=== PATIENT | female | born 1965 | race Two or more races ===

== ENCOUNTER → 2018-09-07 | Outpatient (CLI) | payer OTHER ==
--- NOTE | 2018-09-09 10:26 | MM ---
Reason for exam: screening (asymptomatic). Last mammogram was performed 4 years and 1 month ago. History: Patient is postmenopausal, has history of ovarian cancer at age 50, and had first child at age 31. Physical Findings: A clinical breast exam by your physician is recommended on an annual basis and results should be correlated with mammographic findings. MG Screening Mammo w CAD Bilateral CC and MLO view(s) were taken. Prior study comparison: August 19, 2014, bilateral MG screening mammo w CAD. July 02, 2012, bilateral digital screening mammo w/CAD. The breast tissue is heterogeneously dense. This may lower the sensitivity of mammography. Benign appearing bilateral calcifications. No suspicious abnormality. No significant changes when compared with prior studies. ASSESSMENT: Benign, BI-RAD 2 RECOMMENDATION: Routine screening mammogram of both breasts in 1 year.
== END | disposition home or self-care (01) ==
LOC: RADMAMWWP 09:04
PROVIDERS: ATTEND Family Medicine
DX: Z12.31 Encounter for screening mammogram for malignant neoplasm of breast (principal)
CPT/HCPCS: 77067

== ENCOUNTER → 2020-06-23 | Outpatient (CLI) | payer OTHER ==
--- NOTE | 2020-06-27 09:08 | MM ---
Reason for exam: screening (asymptomatic). Last mammogram was performed 1 year and 9 months ago. History: Patient is postmenopausal, has history of ovarian cancer at age 50, and had first child at age 31. Physical Findings: A clinical breast exam by your physician is recommended on an annual basis and results should be correlated with mammographic findings. MG Screening Mammo w CAD Bilateral CC and MLO view(s) were taken. Prior study comparison: September 07, 2018, bilateral MG screening mammo w CAD. August 19, 2014, bilateral MG screening mammo w CAD. The breast tissue is heterogeneously dense. This may lower the sensitivity of mammography. No significant changes when compared with prior studies. ASSESSMENT: Benign, BI-RAD 2 RECOMMENDATION: Routine screening mammogram of both breasts in 1 year.
== END | disposition home or self-care (01) ==
LOC: RADMAMWWP 12:19
PROVIDERS: ATTEND Family Medicine
DX: Z12.31 Encounter for screening mammogram for malignant neoplasm of breast (principal)
CPT/HCPCS: 77067

== ENCOUNTER 2021-08-30 14:07 | Emergency (ER) | payer OTHER ==
[2021-08-30 14:19] VITALS: BP 186/106; RESP 16; TEMP 97.8
[2021-08-30 15:04] VITALS: PULSE 113
[2021-08-30] MEDS ORDERED: CYCLOBENZAPRINE 10 MG TAB PO STA (15:33)
--- NOTE | 2021-08-30 16:09 | XR ---
EXAMINATION TYPE: XR cervical spine 5 views comp, XR wrist complete 4 views RT, XR shoulder complete 3 views RT, XR humerus 2 views RT DATE OF EXAM: 08/30/2021 COMPARISON: None HISTORY: 55-year-old female fall, trauma, pain FINDINGS: Cervical spine: The predental space widening or prevertebral soft tissue swelling. Mild to moderate degenerative disc disease mid to lower cervical spine with some reversal of the normal cervical lordosis. Trace grade 1 retrolisthesis C6-C7. Otherwise, alignment appears maintained. Multilevel facet and uncovertebral j oint arthropathy. On the left, changes result in severe bony neural foraminal narrowing at C6-C7 and moderate at C5-C6. Mild C3-C4. On the right, mild bony neuroforaminal narrowing C6/C7. The odontoid view shows degenerative joint space narrowing along the C1-C2 lateral mass articulation on the left. Right shoulder and humerus: Minimal degenerative spurring at the glenohumeral joint. AC joint appears intact. No acute fracture, subluxation, or dislocation seen. No humeral shaft fracture. Limited assessment for elbow joint effus ion due to obliquity on the lateral view of the humerus. Mild bony spurring at the lateral epicondyle . Wrist: The radiocarpal and distal radioulnar joint as well as the midcarpal compartment appear intact. There is mild soft tissue swelling about the wrist. Mild degenerative change first MCP and triscaphe joint s. IMPRESSION: 1. Cervical spine: Moderate multilevel spondylotic change. Degenerative trace grade 1 retrolisthesis at C6-C7. Reversal of the normal cervical lordosis could be positional or due to muscle spasm. There may be severe left neuroforaminal stenosis at C6-C7. No prevertebral soft tissue swelling. 2. Right shoulder and humerus: No acute osseous abnormality seen. 3. Wrist: No acute osseous abnormality seen. There may be some mild soft tissue swelling. Mild osteoa rthritic change at the base of the thumb.
--- NOTE | 2021-08-30 16:12 | XR ---
EXAMINATION TYPE: XR foot complete bilateral, 3 views DATE OF EXAM: 08/30/2021 Comparison: None Clinical History: 55-year-old female with pain after trauma, fall Findings: Mild hallux valgus on both sides. Mild degenerative change first MTP joint. Bilateral bipartite tibia l sesamoid. Mild bunion formation on both sides. Bilateral moderate sized plantar heel spurs. No acut e fracture, subluxation, dislocation seen. Impression: No acute osseous abnormality seen on either side. Moderate sized plantar heel spurs on both sides. Mi ld degenerative change first MTP joint and mild hallux valgus with bunion formation bilaterally.
--- NOTE | 2021-08-30 17:15 | ED ---
Fall HPI - General Chief Complaint: Fall Stated Complaint: IHS-Foot injury Time Seen by Provider: 08/30/21 15:11 Source: patient Mode of arrival: ambulatory - History of Present Illness Initial Comments: 55-year-old female presents to the emergency department for IHSS evaluation. 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 She has been complaining of bilateral foot pain. Does have ecchymosis over the right foot. She also has right wrist, humeral and shoulder pain as well as right-sided neck pain. She has been taking Motrin at home with some improvement in her symptoms. Due to her persistent pain her work did recommend that she get evaluated. No numbness, tingling or weakness. She is right-hand dominant. No other alleviating, precipitating modifying factors - Related Data Previous Rx's Medication Instructions Recorded Hydrocodone/Acetaminophen [[place] 1 each PO Q6HR PRN #1 tab 07/17/14 5-325] Lisinopril [Prinivil] 10 mg PO DAILY #30 tab 07/17/14 predniSONE 50 mg PO DAILY #5 tab 07/17/14 traMADol HCl [Ultram] 50 mg PO Q4H PRN #20 tab 07/17/14 Cyclobenzaprine [Flexeril] 10 mg PO TID PRN #15 tab 08/30/21 Ibuprofen [Motrin] 600 mg PO Q8HR PRN #30 tab 08/30/21 Allergies Allergy/AdvReac Type Severity Reaction Status Date / Time No Known Allergies Allergy Verified 08/30/21 14:16 Review of Systems ROS Statement: Those systems with pertinent positive or pertinent negative responses have been documented in the HPI. ROS Other: All systems not noted in ROS Statement are negative. Past Medical History Past Medical History: No Reported History History of Any Multi-Drug Resistant Organisms: None Reported Past Surgical History: No Surgical Hx Reported Past Psychological History: No Psychological Hx Reported Smoking Status: Current every day smoker Past Alcohol Use History: None Reported Past Drug Use History: None Reported General Exam Limitations: no limitations Course Vital Signs 08/30/21 14:16 Temperature 97.8 F Pulse Rate 113 H Respiratory 16 Rate Blood Pressure 186/106 O2 Sat by Pulse 98 Oximetry Medical Decision Making - Medical Decision Making Upon arrival patient was placed in room 31. A thorough history and physical exam was performed. Cervical spine x-ray, humeral, shoulder, wrist and bilateral foot x-rays are performed and images are reviewed by myself. There read by the radiologist as negative for any acute fractures. Cervical spine does demonstrate multilevel spondylitic changes. Left neural foraminal stenosis at C6 to C7. Patient is placed in a Bhupinder shoe on the right due to her reported pain with ambulation. She is given a prescription for Flexeril and Motrin 600 mg. Patient is instructed to take the medications as directed and follow-up with orthopedic clinic for further evaluation of her symptoms. She continues to have pain she may need repeat images performed for which the patient understood. If she has any new or worsening symptoms her request that she return to the emergency department. 5 panel drug screen is ordered on the patient as this is requested by her employer. Patient's discharged home hemodynamically in stable condition Disposition Clinical Impression: Fall, Bilateral foot pain, Right shoulder pain Disposition: HOME SELF-CARE Condition: Stable Instructions (If sedation given, give patient instructions): Foot Sprain (ED), Shoulder Pain (ED) Additional Instructions: Please take the Motrin and flexeril as directed. [facility] if he continued to have pain. Return to the emergency room for any new or worsening symptoms Prescriptions: Cyclobenzaprine [Flexeril] 10 mg PO TID PRN #15 tab PRN Reason: Muscle Spasm Ibuprofen [Motrin] 600 mg PO Q8HR PRN #30 tab PRN Reason: Pain Is patient prescribed a controlled substance at d/c from ED?: No Referrals: Simon Fowler MD [Primary Care Provider] - 1-2 days Karoline Walker DO [Doctor of Osteopathic Medicine] - 1-2 days Time of Disposition: 17:15
== END 2021-08-30 17:34 | disposition home or self-care (01) ==
LOC: EC 14:07
DX: M47.812 Spondylosis without myelopathy or radiculopathy, cervical region (principal); M48.02 Spinal stenosis, cervical region; M25.511 Pain in right shoulder; M79.672 Pain in left foot; M79.671 Pain in right foot; F17.200 Nicotine dependence, unspecified, uncomplicated
CPT/HCPCS: 72050; 99283

== ENCOUNTER → 2021-09-10 | Outpatient (CLI) | payer OTHER ==
--- NOTE | 2021-09-10 10:29 | XR ---
EXAMINATION TYPE: XR humerus RT DATE OF EXAM: 09/10/2021 COMPARISON: NONE HISTORY: Pain TECHNIQUE: 2 views submitted. FINDINGS: The osseous structures are intact and there is mild hypertrophic change of the AC joint. Spurring libra ng the epicondyles noted. Spurring along the radial head and proximal ulna seen. Incidental note made of a coarsened interstitium. IMPRESSION: 1. No acute fracture or dislocation. 2. Coarsened interstitium within the right lung could be chronic correlate clinically.
== END | disposition home or self-care (01) ==
LOC: RADXRMAIN 09:25
PROVIDERS: ATTEND Emergency Medicine
DX: M79.621 Pain in right upper arm (principal)

== ENCOUNTER 2021-09-19 22:44 | Inpatient (IN) | payer OTHER ==
[2021-09-19 23:29] LABS: Basophils # (A) 0.1 k/uL (0-0.2); Basophils % (A) 1 %; Eosinophils # (A) 0.5 k/uL (0-0.7); Eosinophils % (A) 5 %; HCT 39.3 % (34.0-46.0); Lymphocytes # (A) 2.3 k/uL (1.0-4.8); Lymphocytes % (A) 22 %; MCH 29.9 pg (25.0-35.0); MCHC 33.1 g/dL (31.0-37.0); MCV 90.3 fL (80.0-100.0); Mean Platelet Volume 8.5; Monocytes # (A) 0.5 k/uL (0-1.0); Monocytes % (A) 4 %; Neutrophils # (A) 6.7 k/uL (1.3-7.7); Neutrophils % (A) 65 %; Platelet Count 286 k/uL (150-450); RBC 4.35 m/uL (3.80-5.40); RDW 14.4 % (11.5-15.5); WBC 10.3 k/uL (3.8-10.6)
--- NOTE | 2021-09-19 23:41 | XR ---
EXAMINATION TYPE: XR chest 2V DATE OF EXAM: 09/19/2021 COMPARISON: NONE HISTORY: Short of breath TECHNIQUE: 2 views FINDINGS: Heart is enlarged. There is some pulmonary vascular congestion. No hilar mass. Mediastinum is normal. Bony thorax is intact. IMPRESSION: There is evidence for some mild congestive heart failure.
[2021-09-19] MEDS ORDERED: ENALAPRILAT 1.25 MG/ML 1 ML VIAL IVP STA (23:44)
[2021-09-19 23:48] LABS: Albumin 4.1 g/dL (3.5-5.0); Calcium 9.2 mg/dL (8.4-10.2); Total Bilirubin 0.7 mg/dL (0.2-1.3); Total Protein 7.2 g/dL (6.3-8.2)
--- NOTE | 2021-09-19 23:55 | ED ---
SOB HPI - General Chief Complaint: Shortness of Breath Stated Complaint: JANETTE Time Seen by Provider: 09/19/21 23:24 Source: patient Mode of arrival: ambulatory - History of Present Illness Initial Comments: This patient is a 55-year-old woman who presents to be evaluated for shortness of breath and cough. Patient states that the symptoms had started coming on "a few days ago" which is also when she ran out of her blood pressure medication. The patient states she has also had a cough with some clear sputum. She has not noticed chest pain. There is no fever or chill. No change in urination or bowel movements. No leg pain or swelling MD Complaint: shortness of breath, cough -: days(s) Severity scale (1-10): 0 Consistency: constant Improves With: nothing Worsens With: nothing Context: medication noncompliance Associated Symptoms: cough - Related Data Previous Rx's Medication Instructions Recorded Hydrocodone/Acetaminophen [[place] 1 each PO Q6HR PRN #1 tab 07/17/14 5-325] Lisinopril [Prinivil] 10 mg PO DAILY #30 tab 07/17/14 predniSONE 50 mg PO DAILY #5 tab 07/17/14 traMADol HCl [Ultram] 50 mg PO Q4H PRN #20 tab 07/17/14 Cyclobenzaprine [Flexeril] 10 mg PO TID PRN #15 tab 08/30/21 Ibuprofen [Motrin] 600 mg PO Q8HR PRN #30 tab 08/30/21 Allergies Allergy/AdvReac Type Severity Reaction Status Date / Time No Known Allergies Allergy Verified 09/19/21 22:48 Review of Systems ROS Statement: Those systems with pertinent positive or pertinent negative responses have been documented in the HPI. ROS Other: All systems not noted in ROS Statement are negative. Constitutional: Denies: fever, chills Respiratory: Reports: as per HPI, cough, dyspnea. Denies: wheezes, hemoptysis Cardiovascular: Reports: orthopnea. Denies: chest pain, palpitations, edema, syncope Gastrointestinal: Denies: abdominal pain, vomiting, diarrhea Genitourinary: Denies: dysuria, hematuria Musculoskeletal: Denies: back pain Skin: Denies: rash Neurological: Denies: headache Past Medical History Past Medical History: Hypertension History of Any Multi-Drug Resistant Organisms: None Reported Past Surgical History: No Surgical Hx Reported Past Psychological History: No Psychological Hx Reported Smoking Status: Current every day smoker Past Alcohol Use History: None Reported Past Drug Use History: None Reported General Exam General appearance: alert, in no apparent distress Head exam: Present: atraumatic, normocephalic Eye exam: Present: normal appearance. Absent: scleral icterus, conjunctival injection Neck exam: Present: normal inspection Respiratory exam: Present: rales. Absent: respiratory distress, wheezes, rhonchi, stridor, accessory muscle use Cardiovascular Exam: Present: regular rate, normal rhythm, systolic murmur (There is a grade 3/6 systolic ejection murmur), gallop. Absent: diastolic murmur, rubs GI/Abdominal exam: Present: soft. Absent: distended, tenderness, guarding, rebound, rigid Extremities exam: Present: normal inspection, normal capillary refill. Absent: pedal edema, calf tenderness Back exam: Present: normal inspection. Absent: CVA tenderness (R), CVA tenderness (L) Neurological exam: Present: alert Skin exam: Present: warm, dry, intact, normal color. Absent: rash Course Vital Signs 09/19/21 09/20/21 09/20/21 22:45 00:07 00:15 Temperature 98.1 F Pulse Rate 53 L 92 92 Respiratory 18 18 16 Rate Blood Pressure 195/116 182/115 160/100 O2 Sat by Pulse 94 L 99 98 Oximetry 09/20/21 09/20/21 09/20/21 00:20 00:32 01:10 Temperature Pulse Rate 90 84 80 Respiratory 16 16 14 Rate Blood Pressure 154/99 146/96 141/83 O2 Sat by Pulse 96 97 98 Oximetry Medical Decision Making - Lab Data Result diagrams: 09/19/21 23:16 09/19/21 23:16 Lab Results 09/19/21 09/19/21 09/19/21 Range/Units 23:16 23:16 23:16 WBC 10.3 (3.8-10.6) k/uL RBC 4.35 (3.80-5.40) m/uL Hgb 13.0 (11.4-16.0) gm/dL Hct 39.3 (34.0-46.0) % MCV 90.3 (80.0-100.0) fL MCH 29.9 (25.0-35.0) pg MCHC 33.1 (31.0-37.0) g/dL RDW 14.4 (11.5-15.5) % Plt Count 286 (150-450) k/uL MPV 8.5 Neutrophils % 65 % Lymphocytes % 22 % Monocytes % 4 % Eosinophils % 5 % Basophils % 1 % Neutrophils # 6.7 (1.3-7.7) k/uL Lymphocytes # 2.3 (1.0-4.8) k/uL Monocytes # 0.5 (0-1.0) k/uL Eosinophils # 0.5 (0-0.7) k/uL Basophils # 0.1 (0-0.2) k/uL PT 10.3 (9.0-12.0) sec INR 0.9 (<1.2) APTT 22.6 (22.0-30.0) sec Sodium 137 (137-145) mmol/L Potassium 4.0 (3.5-5.1) mmol/L Chloride 109 H (98-107) mmol/L Carbon Dioxide 20 L (22-30) mmol/L Anion Gap 8 mmol/L BUN 21 H (7-17) mg/dL Creatinine 1.28 H (0.52-1.04) mg/dL Est GFR (CKD-EPI)AfAm 54 (>60 ml/min/1.73 sqM) Est GFR (CKD-EPI)NonAf 47 (>60 ml/min/1.73 sqM) Glucose 131 H (74-99) mg/dL Plasma Lactic Acid Alexei (0.7-2.0) mmol/L Calcium 9.2 (8.4-10.2) mg/dL Total Bilirubin 0.7 (0.2-1.3) mg/dL AST 36 (14-36) U/L ALT 31 (4-34) U/L Alkaline Phosphatase 130 H (38-126) U/L Troponin I (0.000-0.034) ng/mL NT-Pro-B Natriuret Pep pg/mL Total Protein 7.2 (6.3-8.2) g/dL Albumin 4.1 (3.5-5.0) g/dL 09/19/21 09/19/21 09/20/21 Range/Units 23:16 23:38 00:00 WBC (3.8-10.6) k/uL RBC (3.80-5.40) m/uL Hgb (11.4-16.0) gm/dL Hct (34.0-46.0) % MCV (80.0-100.0) fL MCH (25.0-35.0) pg MCHC (31.0-37.0) g/dL RDW (11.5-15.5) % Plt Count (150-450) k/uL MPV Neutrophils % % Lymphocytes % % Monocytes % % Eosinophils % % Basophils % % Neutrophils # (1.3-7.7) k/uL Lymphocytes # (1.0-4.8) k/uL Monocytes # (0-1.0) k/uL Eosinophils # (0-0.7) k/uL Basophils # (0-0.2) k/uL PT (9.0-12.0) sec INR (<1.2) APTT (22.0-30.0) sec Sodium (137-145) mmol/L Potassium (3.5-5.1) mmol/L Chloride (98-107) mmol/L Carbon Dioxide (22-30) mmol/L Anion Gap mmol/L BUN (7-17) mg/dL Creatinine (0.52-1.04) mg/dL Est GFR (CKD-EPI)AfAm (>60 ml/min/1.73 sqM) Est GFR (CKD-EPI)NonAf (>60 ml/min/1.73 sqM) Glucose (74-99) mg/dL Plasma Lactic Acid Alexie 0.9 (0.7-2.0) mmol/L Calcium (8.4-10.2) mg/dL Total Bilirubin (0.2-1.3) mg/dL AST (14-36) U/L ALT (4-34) U/L Alkaline Phosphatase (38-126) U/L Troponin I 0.097 H* (0.000-0.034) ng/mL NT-Pro-B Natriuret Pep 4520 pg/mL Total Protein (6.3-8.2) g/dL Albumin (3.5-5.0) g/dL - EKG Data -: EKG Interpreted by Tx EKG shows normal: sinus rhythm, axis (Normal), intervals (Normal), QRS complexes (LVH) Rate: tachycardia (Rate 106 bpm) Interpretation: LVH Disposition Clinical Impression: Congestive heart failure, Hypertension, Elevated troponin I measurement Disposition: ADMITTED IP TO THIS HOSP Condition: Fair Is patient prescribed a controlled substance at d/c from ED?: No Referrals: Simon Fowler MD [Primary Care Provider] - 1-2 days
[2021-09-20] MEDS: NITROGLYCERIN SL TABS 0.4 MG TAB SUBLINGUAL STA ×3 (00:09→00:21)
[2021-09-20 00:10] LABS: INR 0.9 (<1.2); Partial Thromboplastin Time 22.6 sec (22.0-30.0); Prothrombin Time 10.3 sec (9.0-12.0)
[2021-09-20] MEDS: FUROSEMIDE 10 MG/ML 4 ML VIAL IV SCH ×2 (02:14→13:52)
[2021-09-20] MEDS ORDERED: ACETAMINOPHEN TAB 325 MG TAB PO PRN (05:20)
[2021-09-20] MEDS ORDERED: HEPARIN SODIUM 1,000 UN/ML (10ML VL) IV ONE (06:23)
[2021-09-20] MEDS ORDERED: HEPARIN SODIUM 1,000 UN/ML (10ML VL) IV PRN (06:23)
[2021-09-20] MEDS ORDERED: CYCLOBENZAPRINE 10 MG TAB PO PRN (06:23)
[2021-09-20] MEDS ORDERED: HYDROcodone/APAP 5-325MG 1 EACH TAB PO PRN (06:23)
--- NOTE | 2021-09-20 06:31 | P.HPIM ---
History of Present Illness H&P Date: 09/20/21 Chief Complaint: chest pain/shortness of breath 55-year-old female with diabetes mellitus hypertension Patient comes in for an episode of chest pain described as pressure across her chest 5 out of 10 in severity associated with shortness of breath and palpitations denies any profuse sweating nausea or vomiting denies any abdominal pain diarrhea fevers or chills. She started feeling dizzy and weak got concerned and decided to come to the hospital for evaluation pain didn't last long can started improving by the time she got to the hospital. She reports that for the last 3 days she's been having some shortness of breath with activity and coughing she was feeling out of shape she quit smoking for the past 3-4 days as she was not able to tolerate that due to trouble breathing. Again she denies any other respiratory symptoms. Denies any leg edema. Denies any orthopnea or paroxysmal maternal dyspnea. Denies any history of cardiac disease or congestive heart failure. Denies any history of cardiac workup.denies any GI bleeding, denies any recent travel her hospitalization, denies any diagnoses of active cancer upon arrival to the ED she mentioned that she was not taking her blood pressure medications for the past few days as she ran out. Chest x-ray showed mild congestion she was given some IV Lasix, EKG showed sinus tachycardia, troponin was slightly elevated patient admits to tobacco smoking, denies illicit drugs, admits to occasional alcohol Review of Systems Pertinent positives as noted in HPI. All other systems were reviewed and are negative Past Medical History Past Medical History: Diabetes Mellitus, Hypertension History of Any Multi-Drug Resistant Organisms: None Reported Past Surgical History: No Surgical Hx Reported Past Psychological History: No Psychological Hx Reported Smoking Status: Current some day smoker Past Alcohol Use History: None Reported Past Drug Use History: None Reported - Past Family History Father Family Medical History: CVA/TIA Medications and Allergies Home Medications Medication Instructions Recorded Confirmed Type Hydrocodone/Acetaminophen [[place] 1 each PO Q6HR PRN #1 tab 07/17/14 Rx 5-325] Lisinopril [Prinivil] 10 mg PO DAILY #30 tab 07/17/14 Rx predniSONE 50 mg PO DAILY #5 tab 07/17/14 Rx traMADol HCl [Ultram] 50 mg PO Q4H PRN #20 tab 07/17/14 Rx Cyclobenzaprine [Flexeril] 10 mg PO TID PRN #15 tab 08/30/21 Rx Ibuprofen [Motrin] 600 mg PO Q8HR PRN #30 tab 08/30/21 Rx Allergies Allergy/AdvReac Type Severity Reaction Status Date / Time No Known Allergies Allergy Verified 09/19/21 22:48 Physical Exam Vitals: Vital Signs Temp Pulse Pulse Resp BP BP Pulse Ox 09/20/21 04:00 97.7 F 103 H 18 155/102 98 09/20/21 03:46 98 F 79 15 148/99 99 09/20/21 01:10 80 14 141/83 98 09/20/21 00:32 84 16 146/96 97 09/20/21 00:20 90 16 154/99 96 09/20/21 00:15 92 16 160/100 98 09/20/21 00:07 92 18 182/115 99 09/19/21 22:45 98.1 F 53 L 18 195/116 94 L Intake and Output 09/19/21 09/19/21 09/20/21 14:59 22:59 06:59 Intake Total 720 Output Total 750 Balance -30 Intake: Oral 720 Output: Urine 750 Other: Weight 58.967 kg 58.967 kg Constitutional: No acute distress, conversant, pleasant Eyes: Anicteric sclerae, moist conjunctiva, Pupils equal round reactive to light ENMT: NC/AT Oropharynx clear, no erythema, or exudates Neck: Supple, FROM, no masses, or JVD No carotid bruits No thyromegaly Lungs: scattered rales, otherwise good breath sounds throughout Clear to percussion Normal respiratory effort, no accessory muscle use Cardiovascular: Heart regular in rate and rhythm, systolic murmurs, no gallops, or rubs No peripheral edema Abdominal: Soft Nontender, no guarding, rebound or rigidity Abdomen moving with respiration Normoactive bowel sounds No hepatomegaly, No splenomegaly No palpable mass No abdominal wall hernia noted Skin: Normal temperature, tone, texture, turgor No induration No subcutaneous nodules No rash, lesions No ulcers Extremities: No digital cyanosis No clubbing Pedal pulses intact and symmetrical Radial pulses intact and symmetrical No calf tenderness Psychiatric: Alert and oriented to person, place and time Appropriate affect fair judgement Neuro Muscles Strength 5/5 in all 4 extremities Sensation to light touch grossly present throughout Cranial nerves II-XII grossly intact No focal sensory deficits Lymphatics: no palpable cervical or supraclavicular , or inguinal lymph nodes Results CBC & Chem 7: 09/19/21 23:16 09/19/21 23:16 Labs: Abnormal Lab Results - Last 24 Hours (Table) 09/19/21 09/19/21 09/20/21 Range/Units 23:16 23:16 04:08 Chloride 109 H (98-107) mmol/L Carbon Dioxide 20 L (22-30) mmol/L BUN 21 H (7-17) mg/dL Creatinine 1.28 H (0.52-1.04) mg/dL Glucose 131 H (74-99) mg/dL Alkaline Phosphatase 130 H (38-126) U/L Troponin I 0.097 H* 0.100 H* (0.000-0.034) ng/mL Thrombosis Risk Factor Assmnt - Choose All That Apply Any of the Below Risk Factors Present?: Yes Each Factor Represents 1 point: Age 41-60 years, Obesity (BMI >25) Other Risk Factors: No Other congenital or acquired thrombophilia - If yes, enter type in comment: No Thrombosis Risk Factor Assessment Total Risk Factor Score: 2 Thrombosis Risk Factor Assessment Level: Low Risk Assessment and Plan Assessment: Nstemi mild pulmonary edema Hypertension, noncompliant with meds Plan EKG no acute ST changes Trend troponins, trending up Aspirin and statin pain control with opiates IV Lasix Cardiology consult Heparin dripfor ACS protocol cardiac monitoring resume blood pressure medications lisinopril check echocardiogram, patient has systolic murmur, and to evaluate EF Mild elevation of creatinine unknown baseline Close monitoring of renal function and urine output Diabetes mellitus Insulin sliding scale Check A1c Full code DVT prophylaxis heparin drip for ACS protocol Anticipated length of stay more than 2 midnights
[2021-09-20] MEDS: HEPARIN SOD,PORK IN 0.45% NACL 25,000 UNIT in 0.45% NACL 1 250ML.BAG IV SCH (06:56)
[2021-09-20] MEDS: INSULIN ASPART (NovoLOG) 100 UNIT/ML VIAL SQ SCH ×4 (07:06→20:02)
[2021-09-20 07:08] LABS: Glucose,Whole Blood 103 mg/dL (75-99)
[2021-09-20 07:54] LABS: Partial Thromboplastin Time 82.2 sec (22.0-30.0); Prothrombin Time 11.2 sec (9.0-12.0)
[2021-09-20] MEDS: NITROGLYCERIN OINT 1 INCH/GM PACKET TOPICAL SCH ×4 (08:50→22:47)
[2021-09-20] MEDS ORDERED: lisinopriL 10 MG TAB PO SCH (09:00)
[2021-09-20] MEDS ORDERED: ATORVASTATIN 20 MG TAB PO SCH (09:00)
[2021-09-20] MEDS ORDERED: METOPROLOL TARTRATE 25 MG TAB PO SCH (09:30)
[2021-09-20 09:47] LABS: Chol/HDL Ratio 4.35 Ratio; LDL Cholesterol,Calculated 161.2 mg/dL (0.0-131.0)
[2021-09-20 10:00] LABS: Calcium 9.4 mg/dL (8.4-10.2); Potassium 3.9 mmol/L (3.5-5.1)
--- NOTE | 2021-09-20 10:15 | CA ---
Transthoracic Echo Report Name: Rita Betancourt Age: 55 Gender: F : 1965 Exam Date: 09/20/2021 08:07 Exam Location: [place] [facility] Ht (in): 58 Wt (lb): 127 Ordering Physician: Robby Montes MD Attending/Referring Phys: Internal Corrosion Specialist Roro Paredes RDCS Procedure CPT: Indications: Heart failure Cardiac Hx: Technical Quality: Good Contrast 1: Total Dose (mL): Contrast 2: Total Dose (mL): MEASUREMENTS (Male / Female) Normal Values 2D ECHO LV Diastolic Diameter PLAX 5.9 cm 4.2 - 5.9 / 3.9 - 5.3 cm LV Systolic Diameter PLAX 5.0 cm IVS Diastolic Thickness 0.9 cm 0.6 - 1.0 / 0.6 - 0.9 cm LVPW Diastolic Thickness 0.9 cm 0.6 - 1.0 / 0.6 - 0.9 cm LV Relative Wall Thickness 0.3 RV Internal Dim ED PLAX 2.8 cm LA Systolic Diameter LX 3.7 cm 3.0 - 4.0 / 2.7 - 3.8 cm LA Volume 55.0 cm 18 - 58 / 22 - 52 cm M-MODE Aortic Root Diameter MM 3.2 cm MV E Point Septal Separation 1.9 cm AV Cusp Separation MM 1.8 cm DOPPLER AV Peak Velocity 153.7 cm/s AV Peak Gradient 9.4 mmHg AI Peak Velocity 530.5 cm/s AI Peak Gradient 112.6 mmHg AI Pressure Half Time 348.0 ms MV Area PHT 4.3 cm Mitral E Point Velocity 144.6 cm/s Mitral A Point Velocity 130.5 cm/s Mitral E to A Ratio 1.1 MV Deceleration Time 176.1 ms MV E' Velocity 3.8 cm/s Mitral E to MV E' Ratio 37.7 TR Peak Velocity 307.0 cm/s TR Peak Gradient 37.7 mmHg Right Ventricular Systolic Press 40.6 mmHg FINDINGS Left Ventricle Moderately increased left ventricular diastolic diameter. Left ventricular ejection fraction is estimated at 40-45 %. Right Ventricle The right ventricle is normal in size and function. Mild pulmonary hypertension. Right Atrium The right atrium is normal in size. Left Atrium Mildly increased left atrial volume. Mildly increased left atrial area. Mitral Valve Structurally normal mitral valve without significant stenosis or prolapse. Mitral valve thickened. Mitral annular calcification. Severe mitral regurgitation. Aortic Valve Focal thickening of the aortic valve cusps. Mild aortic regurgitation. Tricuspid Valve Structurally normal tricuspid valve without significant stenosis. Pulmonic Valve Structurally normal pulmonic valve without significant stenosis. Trace pulmonic regurgitation. Pericardium Normal pericardium without effusion. Aorta Normal aortic root dimension. CONCLUSIONS #1. Moderately dilated left ventricle with generalized hypokinesia and ejection fraction of 40-45%. Consistent with nonischemic cardio myopathy. #2. Left atrial enlargement. #3. Thickening of the mitral valve with calcification with eccentric severe mitral regurgitation. #3. Mild aortic regurgitation. #4. No pericardial effusion Previewed by: Dr. Angel King MD (Electronically Signed) Final Date: 20 September 2021 10:14
[2021-09-20] MEDS: carvediloL 6.25 MG TAB PO SCH ×2 (10:18→17:48)
--- NOTE | 2021-09-20 11:20 | CT ---
EXAMINATION TYPE: CT chest angio for PE DATE OF EXAM: 09/20/2021 COMPARISON: No previous CT scan is available for comparison HISTORY: Chest pain CT DLP: 273.1 mGy.cm. Automated Exposure Control for Dose Reduction was Utilized. TECHNIQUE AND CONTRAST: CTA scan of the thorax is performed without and with IV Contrast, patient injected with 80 ml mL of I sovue 370, pulmonary angiogram protocol. MIP Images are created on an independent workstation and r eviewed. FINDINGS: No definite filling defect within the pulmonary trunk, main pulmonary arteries, lobar, segmental and proximal subsegmental branches to suggest pulmonary embolism. Distal subsegmental branches are subopt imally assessed. The pulmonary trunk measures 2.2 cm. Cardiomegaly with left ventricular hypertrophy and dilatation, please correlate with echocardiographi c results. Scattered arterial atherosclerotic calcifications. No pathologically enlarged lymph nodes in the chest with this CT angiographic study. No sizable pericardial effusion. Small right pleural effusion with scattered bilateral pulmonary thin atelectasis and peripheral retic ulations. Pulmonary edema cannot be excluded. Patent trachea and main bronchi. Unremarkable upper abd omen. Degenerative changes of the mid to lower thoracic spine. IMPRESSION: No major or central pulmonary embolism. Cardiomegaly with suspected pulmonary edema as described codie sandra
[2021-09-20] MEDS ORDERED: ALPRAZolam 0.5 MG TAB PO PRN (11:36)
[2021-09-20] MEDS ORDERED: NITROGLYCERIN SL TABS 0.4 MG TAB SUBLINGUAL PRN (11:36)
[2021-09-20] MEDS ORDERED: ALPRAZolam 0.25 MG TAB PO PRN (11:36)
--- NOTE | 2021-09-20 11:36 | P.CRDCN ---
History of Present Illness History of present illness: HISTORY OF PRESENT ILLNESS: This is a 55 year old female with a past medical history significant for hypertension, diabetes, and nicotine dependence. 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 We have been asked to see the patient in consultation for abnormal troponins. Patient examined at the bedside. Patient presented to the hospital with a chief complaint of shortness of breath. Patient reports for about a week she has been feeling SOB. She also reports a lot of coughing. She states it has gotten worse over the past 3 days and yesterday was so bad she decided to come to the ER. She also reports some chest pain over the past few days. She reports some heaviness in her chest this morning that has since resolved. She denied any radiation of the pain. She does report she has been out of her blood pressure medications for the past few days as well. She denies any previous cardiac history and denies every having a stress test or heart cath. She is a current smoker. No drug use. * EKG reveals sinus tachycardia with LVH * Chest xray there is evidence for some mild congestive heart failure * Laboratory data: WBC 10.3. Hemoglobin 13.0. Platelet count 286. D-dimer 1.05. Sodium 141. Potassium 3.9. BUN 20. Creatinine 1.32. Troponin 0.097. 0.100. 0.088. * CTA: negative for PE * Current home cardiac medications include losartan 100 mg at night * Echocardiogram completed revealing ejection fraction 40-45% with generalized hypokinesia, right ventricle normal in size and function, mild pulmonary hypertension, severe mitral regurgitation. REVIEW OF SYSTEMS: At the time of my exam: CONSTITUTIONAL: Denies fever or chills. HEENT: Denies blurred vision, vision changes, or eye pain. Denies hemoptysis CARDIOVASCULAR: Denies chest pain. Denies orthopnea. Denies PND. Denies palpitations RESPIRATORY: + shortness of breath. GASTROINTESTINAL: Denies abdominal pain. Denies nausea or vomiting. HEMATOLOGIC: Denies bleeding disorders. GENITOURINARY: Denies any blood in urine. SKIN: Denies pruitis. Denies rash. PHYSICAL EXAM: VITAL SIGNS: Reviewed. GENERAL: Well-developed in no acute distress. HEENT: Head is normocephalic. Pupils are equal, round. Sclerae anicteric. Mucous membranes of the mouth are moist. Neck supple. No JVD or thyromegaly LUNGS: Respirations even and unlabored. Lungs diminished bilaterally with scattered crackles. HEART: Regular rate and rhythm. S1 and S2 heard. Systolic murmur noted. ABDOMEN: Soft. Nondistended. Nontender. EXTREMITIES: Normal range of motion. No clubbing or cyanosis. Peripheral pulses intact. No lower extremity edema NEUROLOGIC: Awake and alert. Oriented x 3. ASSESSMENT: Shortness of breath New onset heart failure with reduced EF Non-STEMI Elevated D-Dimer, CTA negative for PE Hypertension, uncontrolled Severe MR Diabetes Nicotine dependence PLAN: Continue IV heparin Resume Losartan Add aspirin 81mg, atorvastatin 40 mg daily, carvedilol 6.25 mg twice a day Continue IV Lasix Daily weights Accurate I&O Monitor kidney function Patient to undergo right and left heart cath tomorrow with Dr. Patton Further recommendations pending patient course Nurse practitioner note has been reviewed by physician. Signing provider agrees with the documented findings, assessment, and plan of care. Past Medical History Past Medical History: Diabetes Mellitus, Hypertension History of Any Multi-Drug Resistant Organisms: None Reported Past Surgical History: No Surgical Hx Reported Past Psychological History: No Psychological Hx Reported Smoking Status: Current some day smoker Past Alcohol Use History: None Reported Past Drug Use History: None Reported - Past Family History Father Family Medical History: CVA/TIA Medications and Allergies Home Medications Medication Instructions Recorded Confirmed Type Losartan Potassium 100 mg PO HS 09/20/21 09/20/21 History metFORMIN HCL [Glucophage] 1,000 mg PO HS 09/20/21 09/20/21 History Allergies Allergy/AdvReac Type Severity Reaction Status Date / Time No Known Allergies Allergy Verified 09/20/21 06:59 Physical Exam Vitals: Vital Signs Temp Pulse Pulse Resp BP BP Pulse Ox 09/20/21 08:59 98.1 F 90 18 161/107 97 09/20/21 04:00 97.7 F 103 H 18 155/102 98 09/20/21 03:46 98 F 79 15 148/99 99 09/20/21 01:10 80 14 141/83 98 09/20/21 00:32 84 16 146/96 97 09/20/21 00:20 90 16 154/99 96 09/20/21 00:15 92 16 160/100 98 09/20/21 00:07 92 18 182/115 99 09/19/21 22:45 98.1 F 53 L 18 195/116 94 L Intake and Output 09/19/21 09/20/21 09/20/21 22:59 06:59 14:59 Intake Total 1120 Output Total 750 Balance 370 Intake: Oral 1120 Output: Urine 750 Other: # Voids 1 Weight 58.967 kg 57.7 kg Results 09/19/21 23:16 09/20/21 07:15 Cardiac Enzymes 09/19/21 09/19/21 09/20/21 Range/Units 23:16 23:16 04:08 AST 36 (14-36) U/L Troponin I 0.097 H* 0.100 H* (0.000-0.034) ng/mL 09/20/21 Range/Units 07:15 AST (14-36) U/L Troponin I 0.088 H* (0.000-0.034) ng/mL Coagulation 09/19/21 09/20/21 Range/Units 23:16 07:15 PT 10.3 11.2 (9.0-12.0) sec APTT 22.6 82.2 H (22.0-30.0) sec CBC 09/19/21 Range/Units 23:16 WBC 10.3 (3.8-10.6) k/uL RBC 4.35 (3.80-5.40) m/uL Hgb 13.0 (11.4-16.0) gm/dL Hct 39.3 (34.0-46.0) % Plt Count 286 (150-450) k/uL Comprehensive Metabolic Panel 09/19/21 Range/Units 23:16 Sodium 137 (137-145) mmol/L Potassium 4.0 (3.5-5.1) mmol/L Chloride 109 H (98-107) mmol/L Carbon Dioxide 20 L (22-30) mmol/L BUN 21 H (7-17) mg/dL Creatinine 1.28 H (0.52-1.04) mg/dL Glucose 131 H (74-99) mg/dL Calcium 9.2 (8.4-10.2) mg/dL AST 36 (14-36) U/L ALT 31 (4-34) U/L Alkaline Phosphatase 130 H (38-126) U/L Total Protein 7.2 (6.3-8.2) g/dL Albumin 4.1 (3.5-5.0) g/dL Current Medications Generic Name Dose Route Start Last Admin Trade Name Kira PRN Reason Stop Dose Admin Acetaminophen 650 mg 09/20/21 05:20 09/20/21 07:09 Acetaminophen Tab 325 Mg Tab PO 650 mg Q4HR PRN Administration Fever and/ or Pain Hydrocodone Bitart/Acetaminophen 1 each 09/20/21 06:23 Hydrocodone/Apap 5-325mg 1 Each Tab PO Q6HR PRN Pain Aspirin 81 mg 09/21/21 09:00 Aspirin 81 Mg PO DAILY [facility] Atorvastatin Calcium 20 mg 09/20/21 09:00 09/20/21 08:50 Atorvastatin 20 Mg Tab PO 20 mg DAILY BERNICE Administration Cyclobenzaprine HCl 10 mg 09/20/21 06:23 Cyclobenzaprine 10 Mg Tab PO TID PRN Muscle Spasm Furosemide 40 mg 09/20/21 02:00 09/20/21 02:14 Furosemide 10 Mg/Ml 4 Ml Vial IV 40 mg Q12H [facility] Administration Heparin Sodium (Porcine) 0 unit 09/20/21 06:23 Heparin Sodium 1,000 Un/Ml (10ml Vl) IV PER PROTOCOL PRN Low PTT Protocol Heparin Sodium/Sodium Chloride 250 mls @ 7.076 mls/hr 09/20/21 06:30 09/20/21 06:56 25,000 unit/ Sodium Chloride IV 12 units/kg/hr .Q24H BERNICE 7.076 mls/hr Administration Protocol 12 UNITS/KG/HR Insulin Aspart 0 unit 09/20/21 07:30 09/20/21 07:06 Insulin Aspart (Novolog) 100 Unit/Ml Vial SQ Not Given ACHS [facility] Protocol Nitroglycerin 0.5 inch 09/20/21 09:00 09/20/21 08:50 Nitroglycerin Oint 1 Inch/Gm Packet TOPICAL 0.5 inch QID BERNICE Administration Sodium Chloride 10 ml 09/20/21 09:00 09/20/21 08:50 Sodium Chloride 0.9% Flush 10 Ml Syringe IV 10 ml BID BERNICE Administration Intake and Output 09/19/21 09/20/21 09/20/21 22:59 06:59 14:59 Intake Total 1120 Output Total 750 Balance 370 Intake: Oral 1120 Output: Urine 750 Other: # Voids 1 Weight 58.967 kg 57.7 kg 09/19/21 23:16 09/19/21 23:16
[2021-09-20 12:21] LABS: Glucose,Whole Blood 144 mg/dL (75-99)
[2021-09-20 13:25] VITALS: BMI 26.6
[2021-09-20 16:14] LABS: Glucose,Whole Blood 118 mg/dL (75-99)
[2021-09-20 19:53] LABS: Glucose,Whole Blood 129 mg/dL (75-99)
[2021-09-20] MEDS ORDERED: BENZONATATE 100 MG CAP PO PRN ×2 (20:45→21:26)
[2021-09-20] MEDS: LOSARTAN 50 MG TAB PO SCH (22:06)
[2021-09-20] MEDS ORDERED: SODIUM CHLORIDE 0.9% 1,000 ML in EMPTY BAG 1 BAG IV SCH (23:00)
[2021-09-21] MEDS: FUROSEMIDE 10 MG/ML 4 ML VIAL IV SCH (00:19)
[2021-09-21] MEDS ORDERED: ASPIRIN 325 MG TAB PO ONE (05:00)
[2021-09-21] MEDS ORDERED: ATORVASTATIN 80 MG TAB PO ONE (05:00)
[2021-09-21 06:16] LABS: Glucose,Whole Blood 107 mg/dL (75-99)
[2021-09-21] MEDS: INSULIN ASPART (NovoLOG) 100 UNIT/ML VIAL SQ SCH ×4 (06:18→20:23)
[2021-09-21] MEDS: ATORVASTATIN 40 MG TAB PO SCH (06:19)
[2021-09-21] MEDS: ASPIRIN 81 MG PO SCH (06:19)
[2021-09-21] MEDS: carvediloL 6.25 MG TAB PO SCH ×2 (06:22→17:58)
[2021-09-21] MEDS: HEPARIN SOD,PORK IN 0.45% NACL 25,000 UNIT in 0.45% NACL 1 250ML.BAG IV SCH (06:24)
[2021-09-21 06:46] LABS: Calcium 9.3 mg/dL (8.4-10.2); Potassium 3.8 mmol/L (3.5-5.1)
[2021-09-21] MEDS ORDERED: HEPARIN SODIUM,PORCINE 10,000 UNIT in SODIUM CHLORIDE 0.9% 1,000 ML IRRIGATION PRN (07:00)
[2021-09-21] MEDS ORDERED: HEPARIN SODIUM,PORCINE 2,500 UNIT in SODIUM CHLORIDE 0.9% 250 ML IRRIGATION PRN (07:00)
[2021-09-21] MEDS ORDERED: ASPIRIN 325 MG TAB PO SCH (09:00)
[2021-09-21] MEDS: NITROGLYCERIN OINT 1 INCH/GM PACKET TOPICAL SCH ×4 (10:11→20:30)
[2021-09-21] MEDS ORDERED: DEXTROSE 5% IN WATER 1,000 ML IV ONE (10:24)
[2021-09-21 11:20] LABS: Glucose,Whole Blood 120 mg/dL (75-99)
[2021-09-21] MEDS ORDERED: IV FLUID CONTINUATION 1,000 ML IV ONE (13:15)
[2021-09-21] MEDS ORDERED: MIDAZOLAM 2 MG/2 ML VIAL IV ONE (13:15)
[2021-09-21] MEDS ORDERED: LIDOCAINE 1% INJ 10MG/ML (20 ML MDV) SQ ONE (13:20)
[2021-09-21] MEDS ORDERED: HYDROmorphone 0.5 MG/0.5 ML SYRINGE IVP ONE (13:27)
[2021-09-21] MEDS ORDERED: IOPAMIDOL-370 125ML BTL INJ ONE (13:35)
[2021-09-21] MEDS ORDERED: RX INFO: IV CONTRAST WAS GIVEN 1 EACH MISC MISCELLANE PRN (13:44)
[2021-09-21] MEDS ORDERED: SODIUM CHLORIDE 0.9% 1,000 ML IV SCH (13:45)
--- NOTE | 2021-09-21 13:55 | P.PCN ---
Date of Procedure: 09/21/21 Operative Findings: CARDIAC CATHETERIZATION PERFORMING PHYSICIAN: Diego Patton MD, RPVI PROCEDURE PERFORMED: 1. Selective right and left coronary angiogram 2. Left heart catheterization 3. Right heart catheterization 4. Right common femoral artery angiogram INDICATION: This is a 55 year-old female patient was admitted to the hospital with heart failure and she was diagnosed with cardiomyopathy as well as severe mitral regurgitation. COMPLICATION: None APPROACH: Right common femoral artery LEVEL OF SEDATION: Moderate to sedation length of 16 minutes PROCEDURE DESCRIPTION: After obtaining an informed consent, the patient was brought to cardiac geophysical laboratory director. Local anesthesia was performed using lidocaine subcutaneously. The right common femoral vein was cannulated using micropuncture technique, the micropuncture wire passed easily then I placed an 8-[place] sheath in the right common femoral vein The right common femoral artery was cannulated using Seldinger technique, the guidewire passed easily, following that we advanced a 6 [place] sheath dilator assembly, the wire and dilator were removed and sheath was flushed. Right heart catheterization was performed using Hanover catheter which was advanced to the wedge position then it was pulled back to the right heart chambers. Selective right and left coronary angiogram using a 6-[place] JR4 and JL catheters. Following that we did left heart catheterization using 6-[place] pigtail catheter. The procedure was completed there was no complication. SELECTIVE CORONARY ANGIOGRAM: The right coronary artery: Is a large caliber vessel and a dominant vessel. The RCA is angiographically normal. Distally bifurcates into PDA and PLV branches both appeared to be angiographically normal Left main: Is angiographically normal. Bifurcates into a 6 and LAD The left circumflex: Is a large caliber vessel nondominant vessel. Its angiographically normal. Gives rises into a high takeoff OM1 branch which appeared to be angiographically normal and distally gives rise into the second OM branch which also appears to be angiographically normal The left anterior descending artery: Is angiographically normal. Gives rises into the first second and third diagonal branches. HEMODYNAMICS: #1 The pulmonary capillary wedge pressure was 23 mmHg #2 PA pressures were as follow systolic of 34 and diastolic of 12 and mean of 26 mmHg #3 RV pressures were as follow systolic of 35 and end-diastolic of 14 mmHg #4 RA pressure was 13 mmHg #5 LVEDP was 22 mmHg #6 Transpulmonary gradient was 3 mmHg #7 The cardiac output was 3.65 L/m #8 Pulmonary vascular resistance was 1 Wood unit CONCLUSION: 1. Normal coronary angiogram 2. Nonischemic cardiomyopathy 3. Elevated biventricular filling pressures 4. Mild pulmonary hypertension, WHO group II
--- NOTE | 2021-09-21 16:11 | P.PN ---
Subjective Progress Note Date: 09/21/21 Chief Complaint: chest pain/shortness of breath 55-year-old female with diabetes mellitus hypertension Patient comes in for an episode of chest pain described as pressure across her chest 5 out of 10 in severity associated with shortness of breath and palpitations denies any profuse sweating nausea or vomiting denies any abdominal pain diarrhea fevers or chills. She started feeling dizzy and weak got concerned and decided to come to the hospital for evaluation pain didn't last long can started improving by the time she got to the hospital. She reports that for the last 3 days she's been having some shortness of breath with activity and coughing she was feeling out of shape she quit smoking for the past 3-4 days as she was not able to tolerate that due to trouble breathing. Again she denies any other respiratory symptoms. Denies any leg edema. Denies any orthopnea or paroxysmal maternal dyspnea. Denies any history of cardiac disease or congestive heart failure. Denies any history of cardiac workup.denies any GI bleeding, denies any recent travel her hospitalization, denies any diagnoses of active cancer upon arrival to the ED she mentioned that she was not taking her blood pressure medications for the past few days as she ran out. Chest x-ray showed mild congestion she was given some IV Lasix, EKG showed sinus tachycardia, troponin was slightly elevated patient admits to tobacco smoking, denies illicit drugs, admits to occasional alcohol Interval history: Patient was examined at the bedside. She she stated that her shortness of breath and chest pain has resolved. 2-D echo showed decreased ejection fraction to 40-45% with severe MR. Patient scheduled for heart cath today Physical examination: General: non toxic, no distress, appears at stated age Derm: warm, dry Head: atraumatic, normocephalic, symmetric Eyes: EOMI, no lid lag, anicteric sclera Mouth: no lip lesion, mucus membranes moist Cardiovascular: S1S2 reg, positive systolic murmur, positive posterior tibial pulse bilateral, Lungs: CTA bilateral, no rhonchi, no rales , no accessory muscle use Abdominal: soft, nontender to palpation, no guarding, no appreciable organomegaly Ext: no gross muscle atrophy, no edema, no contractures Neuro: CN II-XI grossly intact, no focal neuro deficits Psych: Alert, oriented, appropriate affect Assessment and plan: #NSTEMI -Resume IV heparin and aspirin beta blockers and statins -LDL 161 -Left heart cath today #Acute systolic CHF exacerbation -Shortness of breath with the onset heart failure with reduced ejection fraction EF 40-45% -Positive d-dimer is but CT of the chest was negative for PE -Patient will losartan and Coreg -Resume IV Lasix #Severe MR #Diabetes mellitus -A1c 6.7 #Ongoing tobacco abuse Objective - Vital Signs Vital signs: Vital Signs Temp 97.7 F 09/21/21 16:00 Pulse 83 09/21/21 16:00 Resp 16 09/21/21 16:00 BP 125/74 09/21/21 16:00 Pulse Ox 100 09/21/21 16:00 Intake & Output 09/20/21 09/21/21 09/21/21 18:59 06:59 18:59 Intake Total 958.824 395.984 685.49 Output Total 750 1850 300 Balance 208.824 -1454.016 385.49 Weight 57.7 kg 56.7 kg Intake: IV 200 Intake, IV Titration 48.824 155.984 365.49 Amount Dextrose 5% in Water 1, 100 000 ml @ 50 mls/hr IV . Q20H [facility] Rx#:[id number] Heparin Sod,Pork in 0.45% 48.824 155.984 65.49 NaCl 25,000 unit In 0.45 % NaCl 1 250ml.bag @ 12 UNITS/KG/HR 7.076 mls/hr IV .Q24H [facility] Rx#: [id number] Sodium Chloride 0.9% 1, 200 000 ml In Empty Bag 1 bag @ 1 ML/KG/HR 57.7 mls/hr IV .[id number] [facility] Rx#: [id number] Oral 910 240 120 Output: Urine 750 1850 300 Other: Voiding Method Toilet Toilet Toilet # Voids 1 - Labs CBC & Chem 7: 09/19/21 23:16 09/21/21 04:53 Labs: Abnormal Lab Results - Last 24 Hours (Table) 09/20/21 09/20/21 09/20/21 Range/Units 16:11 19:30 21:38 APTT 42.3 H (22.0-30.0) sec BUN (7-17) mg/dL Creatinine (0.52-1.04) mg/dL Glucose (74-99) mg/dL POC Glucose (mg/dL) 118 H 129 H (75-99) mg/dL 09/21/21 09/21/21 09/21/21 Range/Units 04:53 04:53 06:13 APTT 44.6 H (22.0-30.0) sec BUN 28 H (7-17) mg/dL Creatinine 1.66 H (0.52-1.04) mg/dL Glucose 126 H (74-99) mg/dL POC Glucose (mg/dL) 107 H (75-99) mg/dL 09/21/21 Range/Units 11:18 APTT (22.0-30.0) sec BUN (7-17) mg/dL Creatinine (0.52-1.04) mg/dL Glucose (74-99) mg/dL POC Glucose (mg/dL) 120 H (75-99) mg/dL
[2021-09-21 17:24] LABS: Glucose,Whole Blood 111 mg/dL (75-99)
[2021-09-21 20:01] LABS: Glucose,Whole Blood 130 mg/dL (75-99)
[2021-09-21] MEDS: LOSARTAN 50 MG TAB PO SCH (20:31)
[2021-09-22 06:07] LABS: Glucose,Whole Blood 103 mg/dL (75-99)
[2021-09-22] MEDS: INSULIN ASPART (NovoLOG) 100 UNIT/ML VIAL SQ SCH ×4 (06:24→20:23)
[2021-09-22] MEDS: carvediloL 6.25 MG TAB PO SCH ×2 (06:47→18:12)
[2021-09-22] MEDS: ATORVASTATIN 40 MG TAB PO SCH (09:57)
[2021-09-22] MEDS: ASPIRIN 81 MG PO SCH (09:57)
[2021-09-22] MEDS: NITROGLYCERIN OINT 1 INCH/GM PACKET TOPICAL SCH (10:03)
[2021-09-22 11:07] LABS: Calcium 9.1 mg/dL (8.4-10.2); Potassium 4.2 mmol/L (3.5-5.1)
[2021-09-22 11:36] LABS: Glucose,Whole Blood 124 mg/dL (75-99)
--- NOTE | 2021-09-22 12:46 | P.PN ---
Subjective Progress Note Date: 09/22/21 The patient is a 55-year-old female who is currently admitted to the hospital with non-ST elevated myocardial infarction. She underwent coronary angiogram yesterday where she was found to have normal coronary arteries. She does have severe mitral regurgitation as well as uncontrolled hypertension, which is improving during that throughout this admission. There was a brief uptake in her creatinine level post-cath. The patient was interviewed and examined sitting comfortably in bed. She states she does have some shortness of breath, but denies any chest pain or chest pressure. No dizziness, lightheadedness, or palpitations. GENERAL: Well-appearing, well-nourished and in no acute distress. NECK: Supple without JVD or thyromegaly. LUNGS: Breath sounds clear to auscultation bilaterally. Respiration equal and unlabored. No wheezes, rales or rhonchi. HEART: Regular rate and rhythm. Systolic murmur. No rubs or gallops. S1 and S2 heard. EXTREMITIES: Normal range of motion, no edema. No clubbing or cyanosis. Peripheral pulses intact and strong. Right groin site is mildly tender. No bruising or hematoma. VITALS: Blood pressure 131/83, pulse 88, respiratory rate 18, temp 98F, SpO2 98% on room air TELEMETRY: Sinus mechanism LABS: Sodium 139, potassium 4.2, BUN 26, creatinine 1.28 IMPRESSION: Systolic heart failure, EF 40-45% Non-ST elevated myocardial infarction, normal coronary arteries Elevated d-dimer, CT negative for PE Hypertension, improving Severe mitral regurgitation Diabetes Current smoker PLAN: Start low-dose furosemide 40 mg daily Continue carvedilol and RAN inhibitor for cardiomyopathy Further recommendations will be based on clinical course I am dictating on behalf of Dr Elver Dunn's history/physical and assessment/plan. Objective - Vital Signs Vital signs: Vital Signs Temp 98.1 F 09/22/21 03:53 Pulse 79 09/22/21 03:53 Resp 16 09/22/21 03:53 BP 142/93 09/22/21 03:53 Pulse Ox 94 L 09/22/21 03:53 Intake & Output 09/21/21 09/22/21 09/22/21 18:59 06:59 18:59 Intake Total 1300.49 240 Output Total 300 400 Balance 1000.49 -160 Weight 58 kg Intake: IV 200 Intake, IV Titration 740.49 Amount Dextrose 5% in Water 1, 100 000 ml @ 50 mls/hr IV . Q20H [facility] Rx#:[id number] Heparin Sod,Pork in 0.45% 65.49 NaCl 25,000 unit In 0.45 % NaCl 1 250ml.bag @ 12 UNITS/KG/HR 7.076 mls/hr IV .Q24H [facility] Rx#: [id number] Sodium Chloride 0.9% 1, 375 000 ml @ 75 mls/hr IV . [id number] [facility] Rx#:[id number] Sodium Chloride 0.9% 1, 200 000 ml In Empty Bag 1 bag @ 1 ML/KG/HR 57.7 mls/hr IV .[id number] [facility] Rx#: [id number] Oral 360 240 Output: Urine 300 400 Other: Voiding Method Toilet Toilet - Labs CBC & Chem 7: 09/19/21 23:16 09/22/21 10:31 Labs: Abnormal Lab Results - Last 24 Hours (Table) 09/21/21 09/21/21 09/21/21 Range/Units 11:18 17:21 19:57 POC Glucose (mg/dL) 120 H 111 H 130 H (75-99) mg/dL 09/22/21 Range/Units 06:05 POC Glucose (mg/dL) 103 H (75-99) mg/dL
--- NOTE | 2021-09-22 14:41 | P.PN ---
Subjective Progress Note Date: 09/22/21 Chief Complaint: chest pain/shortness of breath 55-year-old female with diabetes mellitus hypertension Patient comes in for an episode of chest pain described as pressure across her chest 5 out of 10 in severity associated with shortness of breath and palpitations denies any profuse sweating nausea or vomiting denies any abdominal pain diarrhea fevers or chills. She started feeling dizzy and weak got concerned and decided to come to the hospital for evaluation pain didn't last long can started improving by the time she got to the hospital. She reports that for the last 3 days she's been having some shortness of breath with activity and coughing she was feeling out of shape she quit smoking for the past 3-4 days as she was not able to tolerate that due to trouble breathing. Again she denies any other respiratory symptoms. Denies any leg edema. Denies any orthopnea or paroxysmal maternal dyspnea. Denies any history of cardiac disease or congestive heart failure. Denies any history of cardiac workup.denies any GI bleeding, denies any recent travel her hospitalization, denies any diagnoses of active cancer upon arrival to the ED she mentioned that she was not taking her blood pressure medications for the past few days as she ran out. Chest x-ray showed mild congestion she was given some IV Lasix, EKG showed sinus tachycardia, troponin was slightly elevated patient admits to tobacco smoking, denies illicit drugs, admits to occasional alcohol Interval history: Patient was examined at the bedside. Patient denies any chest pain or shortness of breath. Status post left heart cath yesterday showed normal coronary angiogram Physical examination: General: non toxic, no distress, appears at stated age Derm: warm, dry Head: atraumatic, normocephalic, symmetric Eyes: EOMI, no lid lag, anicteric sclera Mouth: no lip lesion, mucus membranes moist Cardiovascular: S1S2 reg, positive systolic murmur, positive posterior tibial pulse bilateral, Lungs: CTA bilateral, no rhonchi, no rales , no accessory muscle use Abdominal: soft, nontender to palpation, no guarding, no appreciable organomegaly Ext: no gross muscle atrophy, no edema, no contractures Neuro: CN II-XI grossly intact, no focal neuro deficits Psych: Alert, oriented, appropriate affect Assessment and plan: #Acute systolic CHF exacerbation -Nonischemic cardiomyopathy -Shortness of breath with the onset heart failure with reduced ejection fraction EF 40-45% -Positive d-dimer is but CT of the chest was negative for PE -Resume losartan and Coreg -Resume IV Lasix 40 mg daily #NSTEMI -Resume IV heparin and aspirin beta blockers and statins -LDL 161 -Left heart cath / with normal coronary angiogram #Severe MR #Diabetes mellitus -A1c 6.7 #Ongoing tobacco abuse Objective - Vital Signs Vital signs: Vital Signs Temp 97.6 F 09/22/21 13:15 Pulse 88 09/22/21 13:23 Resp 16 09/22/21 13:15 BP 148/83 09/22/21 13:15 Pulse Ox 98 09/22/21 13:15 Intake & Output 09/21/21 09/22/21 09/22/21 18:59 06:59 18:59 Intake Total 1300.49 240 120 Output Total 300 400 Balance 1000.49 -160 120 Weight 58 kg Intake: IV 200 Intake, IV Titration 740.49 Amount Dextrose 5% in Water 1, 100 000 ml @ 50 mls/hr IV . Q20H [facility] Rx#:[id number] Heparin Sod,Pork in 0.45% 65.49 NaCl 25,000 unit In 0.45 % NaCl 1 250ml.bag @ 12 UNITS/KG/HR 7.076 mls/hr IV .Q24H [facility] Rx#: [id number] Sodium Chloride 0.9% 1, 375 000 ml @ 75 mls/hr IV . [id number] [facility] Rx#:[id number] Sodium Chloride 0.9% 1, 200 000 ml In Empty Bag 1 bag @ 1 ML/KG/HR 57.7 mls/hr IV .[id number] [facility] Rx#: [id number] Oral 360 240 120 Output: Urine 300 400 Other: Voiding Method Toilet Toilet Toilet # Voids 2 # Bowel Movements 1 - Labs CBC & Chem 7: 09/19/21 23:16 09/22/21 10:31 Labs: Abnormal Lab Results - Last 24 Hours (Table) 09/21/21 09/21/21 09/22/21 Range/Units 17:21 19:57 06:05 Chloride (98-107) mmol/L BUN (7-17) mg/dL Creatinine (0.52-1.04) mg/dL POC Glucose (mg/dL) 111 H 130 H 103 H (75-99) mg/dL 09/22/21 09/22/21 Range/Units 10:31 11:33 Chloride 108 H (98-107) mmol/L BUN 26 H (7-17) mg/dL Creatinine 1.28 H (0.52-1.04) mg/dL POC Glucose (mg/dL) 124 H (75-99) mg/dL
[2021-09-22 16:25] LABS: Glucose,Whole Blood 141 mg/dL (75-99)
[2021-09-22] MEDS: FUROSEMIDE 40 MG TAB PO SCH (18:12)
[2021-09-22] MEDS: LOSARTAN 50 MG TAB PO SCH (20:23)
[2021-09-22 20:36] LABS: Glucose,Whole Blood 97 mg/dL (75-99)
[2021-09-23] MEDS: INSULIN ASPART (NovoLOG) 100 UNIT/ML VIAL SQ SCH (06:34)
[2021-09-23] MEDS: carvediloL 6.25 MG TAB PO SCH (06:35)
[2021-09-23 06:37] LABS: Glucose,Whole Blood 110 mg/dL (75-99)
[2021-09-23] MEDS: ATORVASTATIN 40 MG TAB PO SCH (08:44)
[2021-09-23] MEDS: FUROSEMIDE 40 MG TAB PO SCH (08:44)
[2021-09-23] MEDS: ASPIRIN 81 MG PO SCH (08:45)
[2021-09-23] MEDS ORDERED: ATORVASTATIN 20 MG TAB PO STA (09:34)
[2021-09-23 10:56] LABS: Potassium 4.4 mmol/L (3.5-5.1)
[2021-09-23 10:57] LABS: Calcium 9.3 mg/dL (8.4-10.2)
[2021-09-23 11:51] LABS: Glucose,Whole Blood 124 mg/dL (75-99)
--- NOTE | 2021-09-23 12:20 | P.PN ---
Subjective Progress Note Date: 09/23/21 The patient is a 55-year-old female who is currently admitted to the hospital with non-ST elevated myocardial infarction. She underwent coronary angiogram yesterday where she was found to have normal coronary arteries. She does have severe mitral regurgitation as well as uncontrolled hypertension, which is improving during that throughout this admission. There was a brief uptake in her creatinine level post-cath. The patient was interviewed and examined sitting comfortably in bed. She states she does have some shortness of breath, but denies any chest pain or chest pressure. No dizziness, lightheadedness, or palpitations. Clinically she states she feels much improved since her admission. GENERAL: Well-appearing, well-nourished and in no acute distress. NECK: Supple without JVD or thyromegaly. LUNGS: Breath sounds clear to auscultation bilaterally. Respiration equal and unlabored. No wheezes, rales or rhonchi. HEART: Regular rate and rhythm. Systolic murmur. No rubs or gallops. S1 and S2 heard. EXTREMITIES: Normal range of motion, no edema. No clubbing or cyanosis. Peripheral pulses intact and strong. VITALS: Blood pressure 134/84, pulse 83, temp 97.7F, respiratory rate 18, SpO2 99% on room air TELEMETRY: Sinus mechanism LABS: Sodium 140, potassium 4.4, BUN 28, creatinine 1.27 IMPRESSION: Systolic heart failure, EF 40-45% Non-ST elevated myocardial infarction, normal coronary arteries Nonischemic cardiomyopathy, on maximal medical treatment Elevated d-dimer, CT negative for PE Hypertension, improved Severe mitral regurgitation Diabetes Current smoker PLAN: Discontinue aspirin Reduce atorvastatin to 20 mg Increase carvedilol to 12.5 mg twice daily Patient may be discharged from the cardiac standpoint Follow-up in office in 1-2 weeks I am dictating on behalf of Dr Elver Dunn's history/physical and assessment/plan. Objective - Vital Signs Vital signs: Vital Signs Temp 97.7 F 09/23/21 08:40 Pulse 83 09/23/21 08:40 Resp 18 09/23/21 08:40 BP 134/84 09/23/21 08:40 Pulse Ox 99 09/23/21 08:40 Intake & Output 09/22/21 09/23/21 09/23/21 18:59 06:59 18:59 Intake Total 120 700 Output Total 600 1400 Balance -480 -700 Weight 58.4 kg Intake: Oral 120 700 Output: Urine 600 1400 Other: Voiding Method Toilet Toilet # Voids 3 1 # Bowel Movements 1 - Labs CBC & Chem 7: 09/19/21 23:16 09/23/21 10:19 Labs: Abnormal Lab Results - Last 24 Hours (Table) 09/22/21 09/22/21 09/22/21 Range/Units 10:31 11:33 16:24 Chloride 108 H (98-107) mmol/L BUN 26 H (7-17) mg/dL Creatinine 1.28 H (0.52-1.04) mg/dL POC Glucose (mg/dL) 124 H 141 H (75-99) mg/dL 09/23/21 Range/Units 06:32 Chloride (98-107) mmol/L BUN (7-17) mg/dL Creatinine (0.52-1.04) mg/dL POC Glucose (mg/dL) 110 H (75-99) mg/dL
--- NOTE | 2021-09-23 13:54 | P.DS ---
Providers Date of admission: 09/20/21 01:57 Expected date of discharge: 09/23/21 Attending physician: Juarez Mccartney MD Consults: 09/20/21 07:34 Consult Physician Routine Consulting Provider: Elver Dunn Consult Reason/Comments: elevated trop Do you want consulting provider notified?: Yes Primary care physician: [facility] Course: hief Complaint: chest pain/shortness of breath 55-year-old female with diabetes mellitus hypertension Patient comes in for an episode of chest pain described as pressure across her chest 5 out of 10 in severity associated with shortness of breath and palpitations denies any profuse sweating nausea or vomiting denies any abdominal pain diarrhea fevers or chills. She started feeling dizzy and weak got concerned and decided to come to the hospital for evaluation pain didn't last long can started improving by the time she got to the hospital. She reports that for the last 3 days she's been having some shortness of breath with activity and coughing she was feeling out of shape she quit smoking for the past 3-4 days as she was not able to tolerate that due to trouble breathing. Again she denies any other respiratory symptoms. Denies any leg edema. Denies any orthopnea or paroxysmal maternal dyspnea. Denies any history of cardiac disease or congestive heart failure. Denies any history of cardiac workup.denies any GI bleeding, denies any recent travel her hospitalization, denies any diagnoses of active cancer upon arrival to the ED she mentioned that she was not taking her blood pressure medications for the past few days as she ran out. Chest x-ray showed mild congestion she was given some IV Lasix, EKG showed sinus tachycardia, troponin was slightly elevated patient admits to tobacco smoking, denies illicit drugs, admits to occasional alcohol Physical examination: General: non toxic, no distress, appears at stated age Derm: warm, dry Head: atraumatic, normocephalic, symmetric Eyes: EOMI, no lid lag, anicteric sclera Mouth: no lip lesion, mucus membranes moist Cardiovascular: S1S2 reg, positive systolic murmur, positive posterior tibial pulse bilateral, Lungs: CTA bilateral, no rhonchi, no rales , no accessory muscle use Abdominal: soft, nontender to palpation, no guarding, no appreciable organomegaly Ext: no gross muscle atrophy, no edema, no contractures Neuro: CN II-XI grossly intact, no focal neuro deficits Psych: Alert, oriented, appropriate affect Hospital course and due to the problem list: #Acute systolic CHF exacerbation -Nonischemic cardiomyopathy EF 4045% -Shortness of breath with the onset heart failure with reduced ejection fraction EF 40-45% -Positive d-dimer is but CT of the chest was negative for PE -Resume losartan and Coreg. -IV Lasix switched to oral Lasix #NSTEMI type 2 -Resume IV heparin and aspirin beta blockers and statins. -LDL 161 -Left heart cath / with normal coronary angiogram. #Severe MR #Diabetes mellitus. -A1c 6.7 #Ongoing tobacco abuse. Patient Condition at Discharge: Stable Plan - Discharge Summary Discharge Rx Participant: No New Discharge Prescriptions: New carvediloL [Coreg] 6.25 mg PO BID-W/MEALS #60 tab Losartan [Cozaar] 100 mg PO HS #30 tab Furosemide [Lasix] 40 mg PO DAILY #30 tab Atorvastatin [Lipitor] 40 mg PO DAILY #30 tab Continue metFORMIN HCL [Glucophage] 1,000 mg PO HS Discontinued Losartan Potassium 100 mg PO HS Discharge Medication List metFORMIN HCL [Glucophage] 1,000 mg PO HS 09/20/21 [History] Atorvastatin [Lipitor] 40 mg PO DAILY #30 tab 09/23/21 [Rx] Furosemide [Lasix] 40 mg PO DAILY #30 tab 09/23/21 [Rx] Losartan [Cozaar] 100 mg PO HS #30 tab 09/23/21 [Rx] carvediloL [Coreg] 6.25 mg PO BID-W/MEALS #60 tab 09/23/21 [Rx] Follow up Appointment(s)/Referral(s): Elver Dunn MD [STAFF PHYSICIAN] - 1 Week Simon Fowler MD [Primary Care Provider] - 1-2 days Patient Instructions/Handouts: Heart Failure (DC), Hypertension (DC) Discharge Disposition: HOME SELF-CARE
[2021-09-23 16:35] VITALS: BP 145/86; PULSE 77; RESP 20; TEMP 97.8
[2021-09-23] MEDS ORDERED: carvediloL 12.5 MG TAB PO SCH (17:30)
== END 2021-09-23 16:18 | disposition home or self-care (01) | DRG 280 ==
LOC: EC 22:44 → 3SCARD 09-20 01:57
PROVIDERS: ADMIT Internal Medicine; ATTEND Internal Medicine
PROC: B2111ZZ Fluoroscopy of Multiple Coronary Arteries using Low Osmolar Contrast (ICD-10-PCS; 2021-09-21)
PROC: B41F1ZZ Fluoroscopy of Right Lower Extremity Arteries using Low Osmolar Contrast (ICD-10-PCS; 2021-09-21)
PROC: 4A023N8 Measurement of Cardiac Sampling and Pressure, Bilateral, Percutaneous Approach (ICD-10-PCS; principal; 2021-09-21 10:30)
DX: I11.0 Hypertensive heart disease with heart failure (principal); I50.23 Acute on chronic systolic (congestive) heart failure; I21.A1 Myocardial infarction type 2; I42.8 Other cardiomyopathies; I27.22 Pulmonary hypertension due to left heart disease; E11.9 Type 2 diabetes mellitus without complications; I34.0 Nonrheumatic mitral (valve) insufficiency; F17.200 Nicotine dependence, unspecified, uncomplicated; Z91.14 Patient's other noncompliance with medication regimen; Z79.84 Long term (current) use of oral hypoglycemic drugs; Z79.899 Other long term (current) drug therapy; Z82.3 Family history of stroke
CPT/HCPCS: 36415; 71046; 71275; 80048; 80053; 80061; 83036; 83605; 83880; 84484; 85025; 85379; 85610; 85730; 93005; 93306; 93460; 96374; 99285

== ENCOUNTER 2021-09-29 22:38 | Emergency (ER) | payer OTHER ==
[2021-09-29 22:44] VITALS: TEMP 97.5
[2021-09-29] MEDS ORDERED: ASPIRIN 81 MG PO STA (23:33)
[2021-09-29] MEDS ORDERED: NITROGLYCERIN SL TABS 0.4 MG TAB SUBLINGUAL STA (23:33)
--- NOTE | 2021-09-29 23:37 | ED ---
Chest Pain HPI - General Chief Complaint: Chest Pain Stated Complaint: chest pain Time Seen by Provider: 09/29/21 23:23 Source: patient Mode of arrival: ambulatory - History of Present Illness Initial Comments: This patient is a 55-year-old woman who presents to be evaluated for chest pain that had come on approximately 90 minutes ago. She states that she was walking around at a wedding woman came on. She describes the sensation as being burning type of pain. She states that she is scheduled to have further evaluation by cardiology and because of this felt she should be seen flako ROBERTS Complaint: chest pain -: hour(s) Onset: other Pain Location: left chest Pain Radiation: none Severity: mild Quality: other (Burning) Consistency: constant Improves With: nothing Worsens With: nothing Treatments Prior to Arrival: none - Related Data Home Medications Medication Instructions Recorded Confirmed metFORMIN HCL [Glucophage] 1,000 mg PO HS 09/20/21 09/20/21 Previous Rx's Medication Instructions Recorded Atorvastatin [Lipitor] 40 mg PO DAILY #30 tab 09/23/21 Furosemide [Lasix] 40 mg PO DAILY #30 tab 09/23/21 Losartan [Cozaar] 100 mg PO HS #30 tab 09/23/21 carvediloL [Coreg] 6.25 mg PO BID-W/MEALS #60 tab 09/23/21 Allergies Allergy/AdvReac Type Severity Reaction Status Date / Time No Known Allergies Allergy Verified 09/29/21 22:44 Review of Systems ROS Statement: Those systems with pertinent positive or pertinent negative responses have been documented in the HPI. ROS Other: All systems not noted in ROS Statement are negative. Constitutional: Denies: fever, chills Respiratory: Denies: cough, dyspnea Cardiovascular: Reports: chest pain. Denies: palpitations, orthopnea, syncope Gastrointestinal: Denies: abdominal pain, nausea, vomiting Genitourinary: Denies: dysuria, hematuria Musculoskeletal: Denies: back pain Skin: Denies: rash Neurological: Denies: headache, weakness, numbness EKG Findings - EKG Results: EKG: interpreted by ENRICO, sinus rhythm (Rate 89 bpm), normal axis - Blocks, Hedley, Hypertrophy, ST Abn: Chamber hypertrophy or enlargement: left ventricular hypertrophy or enlargement (LVE) Repolarization changes or abnormalities: nonspecific abnormality, ST segment, and/or T wave Past Medical History Past Medical History: Heart Failure, Diabetes Mellitus, Hypertension History of Any Multi-Drug Resistant Organisms: None Reported Past Surgical History: No Surgical Hx Reported Past Psychological History: No Psychological Hx Reported Smoking Status: Current some day smoker Past Alcohol Use History: None Reported Past Drug Use History: None Reported - Past Family History Father Family Medical History: CVA/TIA General Exam General appearance: alert, in no apparent distress Head exam: Present: atraumatic, normocephalic Eye exam: Present: normal appearance. Absent: scleral icterus, conjunctival injection Neck exam: Present: normal inspection Respiratory exam: Present: normal lung sounds bilaterally. Absent: respiratory distress, wheezes, rales, rhonchi, stridor Cardiovascular Exam: Present: regular rate, normal rhythm, normal heart sounds. Absent: systolic murmur, diastolic murmur, rubs, gallop GI/Abdominal exam: Present: soft. Absent: distended, tenderness, guarding, rebound, rigid, mass Extremities exam: Present: normal inspection, normal capillary refill. Absent: pedal edema, calf tenderness Back exam: Present: normal inspection. Absent: CVA tenderness (R), CVA tenderness (L) Neurological exam: Present: alert Skin exam: Present: warm, dry, intact, normal color. Absent: rash Course Vital Signs 09/29/21 09/29/21 09/30/21 22:41 23:08 00:33 Temperature 97.5 F L Pulse Rate 95 71 73 Respiratory 18 18 18 Rate Blood Pressure 187/96 166/99 123/81 O2 Sat by Pulse 98 97 98 Oximetry 09/30/21 09/30/21 09/30/21 02:04 03:13 03:48 Temperature Pulse Rate 81 74 62 Respiratory 18 16 18 Rate Blood Pressure 161/79 128/72 128/83 O2 Sat by Pulse 97 98 97 Oximetry Disposition Clinical Impression: Chest pain Disposition: HOME SELF-CARE Condition: Good Instructions (If sedation given, give patient instructions): Chest Pain (ED) Is patient prescribed a controlled substance at d/c from ED?: No Referrals: Simon Fowler MD [Primary Care Provider] - 1-2 days
[2021-09-29 23:44] LABS: Basophils # (A) 0.1 k/uL (0-0.2); Basophils % (A) 1 %; Eosinophils # (A) 0.5 k/uL (0-0.7); Eosinophils % (A) 5 %; HCT 39.4 % (34.0-46.0); HGB 12.6 gm/dL (11.4-16.0); Lymphocytes # (A) 2.5 k/uL (1.0-4.8); Lymphocytes % (A) 24 %; MCH 29.2 pg (25.0-35.0); MCV 91.3 fL (80.0-100.0); Monocytes # (A) 0.6 k/uL (0-1.0); Monocytes % (A) 6 %; Neutrophils # (A) 6.6 k/uL (1.3-7.7); Neutrophils % (A) 62 %; Platelet Count 319 k/uL (150-450); RBC 4.32 m/uL (3.80-5.40); RDW 13.6 % (11.5-15.5); WBC 10.6 k/uL (3.8-10.6)
[2021-09-29 23:52] LABS: INR 0.9 (<1.2); Prothrombin Time 9.7 sec (9.0-12.0)
[2021-09-29 23:57] LABS: Albumin 4.3 g/dL (3.5-5.0); Calcium 9.2 mg/dL (8.4-10.2); Magnesium 2.1 mg/dL (1.6-2.3); Potassium 4.4 mmol/L (3.5-5.1); Total Bilirubin 0.5 mg/dL (0.2-1.3); Total Protein 7.7 g/dL (6.3-8.2)
--- NOTE | 2021-09-30 00:41 | XR ---
EXAM: XR Chest, 2 Views CLINICAL HISTORY: ITS.REASON XR Reason: Chest Pain TECHNIQUE: Frontal and lateral views of the chest. COMPARISON: Chest radiograph on 09/19/2021 FINDINGS: Hardware: None. Lungs/pleura: Decreased but persistent mildly prominent lung markings and mild hazy opacities. No pleural effusion or pneumothorax. Heart/mediastinum: Stable enlargement of the cardiac silhouette. Soft tissues: Unremarkable. Bones: No acute fracture. Upper abdomen: Normal. IMPRESSION: Decreased but persistent mildly prominent lung markings and mild hazy opacities, likely representing pulmonary vasculature congestion/edema.
[2021-09-30 04:32] VITALS: BP 119/63; PULSE 68; RESP 16
[2021-10-01] MEDS ORDERED: ASPIRIN 325 MG TAB PO SCH (09:00)
== END 2021-09-30 04:39 | disposition home or self-care (01) ==
LOC: EC 22:38
DX: R07.89 Other chest pain (principal); E11.9 Type 2 diabetes mellitus without complications; I11.0 Hypertensive heart disease with heart failure; I50.9 Heart failure, unspecified; F17.200 Nicotine dependence, unspecified, uncomplicated; Z79.84 Long term (current) use of oral hypoglycemic drugs; Z79.899 Other long term (current) drug therapy
CPT/HCPCS: 36415; 71046; 80053; 83735; 84484; 85025; 85610; 85730; 99285

== ENCOUNTER → 2021-10-03 | Outpatient (CLI) | payer OTHER ==
--- NOTE | 2021-10-03 10:20 | MR ---
EXAMINATION TYPE: MR shoulder RT wo con DATE OF EXAM: 10/03/2021 COMPARISON: None HISTORY: Rt shoulder pain, sprain TECHNIQUE: Multiplanar, multisequence imaging of the right shoulder is performed without contrast. FINDINGS: Rotator Cuff: There is diffuse severe tendinopathy of the distal 2.2 cm of the infraspinatus and supr aspinatus tendons with a partial undersurface tear representing greater than 50% of the width of the tendon. There is a small focal through thickness partial tear at the insertion of the posterior fiber s of the infraspinatus tendon measuring approximately 4 mm. Subscapularis tendon is demonstrates irregularity near suggestive of tendinosis and partial tear. The re is fluid in the subacromial subdeltoid bursa. Acromioclavicular Joint: AC joint arthropathy noted without significant mass effect or impingement. Glenohumeral Joint: No sizable joint effusion. Motion limits assessment of the inferior glenohumeral ligament which is felt to be intact. Labrum: Assessment of the bony labrum is limited due to noncontrast technique and artifact extensive motion artifact. There does appear to be truncation of the superior labrum. SLAP tear in the differen tial diagnosis. Biceps Tendon: Bicipital tendon is well situated in the bicipital groove. There is increased fluid cueto rrounding the biceps tendon suggestive of bicipital tendinosis. Biceps anchor and intracapsular porti on of the tendon demonstrate tendon to be intact Bone marrow signal: No focal abnormal marrow signal is appreciated. Other: There is a area of fluid signal in the suprascapular notch measuring 9 mm correlate for supras capular Notch cyst. IMPRESSION: 1. Diffuse severe tendinopathy of the distal approximately 2 cm of the infraspinatus and supraspinatu s tendons with partial greater than 50% diameter stairs. There is a small 4 mm partial through thickn ess tear at the insertion of the posterior fibers of the infraspinatus tendon. 2. Limited assessment of the bony labrum with truncation of the superior labrum correlate for SLAP te ar 3. Bicipital tendinosis. 4. Tendinosis subscapularis tendon with partial tear at the insertion. 5. 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 Somet imes a be associated with nerve impingement.
== END | disposition home or self-care (01) ==
LOC: RADMRIMAIN 07:48
PROVIDERS: ATTEND Emergency Medicine
DX: M67.813 Other specified disorders of tendon, right shoulder (principal); M75.111 Incomplete rotator cuff tear or rupture of right shoulder, not specified as traumatic; M85.611 Other cyst of bone, right shoulder; M75.21 Bicipital tendinitis, right shoulder

== ENCOUNTER → 2022-06-10 | Outpatient (CLI) | payer BC, OTHER ==
[2022-06-10 19:04] LABS: African American GFR (CKD) 42.3 (60.0-200.0); Anion Gap 14.5 mmol/L (10.00-18.00); BUN/Creat Ratio 15.45 Ratio (12.00-20.00); Blood Urea Nitrogen 24.1 mg/dL (9.0-27.0); Calcium 10.1 mg/dL (8.7-10.3); Magnesium 2.6 mg/dL (1.5-2.4); Non-African American GFR(CKD) 36.5 (60.0-200.0); Potassium 4.8 mmol/L (3.5-5.5)
== END | disposition home or self-care (01) ==
LOC: LABWHC1 10:43
PROVIDERS: ATTEND Nurse Practitioner Adult Health
DX: I10 Essential (primary) hypertension (principal)
CPT/HCPCS: 36415; 80048; 83735

== ENCOUNTER 2022-08-23 05:56 | Day surgery (SDC) | payer OTHER ==
--- NOTE | 2022-08-22 08:52 | P.HPOR ---
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 She notes persistent pain with overhead activity and at night. She is try conservative treatment with medications, home exercises, and therapy without much relief of her symptoms. She had to delay surgery secondary to heart issues. Review of Systems As per HPI Past Medical History Past Medical History: Heart Failure, Diabetes Mellitus, Hyperlipidemia, Hypertension, Musculoskeletal Disorder, Osteoarthritis (OA) Additional Past Medical History / Comment(s): episode of heart failure last year, stable now, hx. gout History of Any Multi-Drug Resistant Organisms: None Reported Past Surgical History: Section, Hysterectomy Past Anesthesia/Blood Transfusion Reactions: No Reported Reaction Smoking Status: Current some day smoker - Past Family History Father Family Medical History: CVA/TIA Medications and Allergies Home Medications Medication Instructions Recorded Confirmed Type metFORMIN HCL [Glucophage] 1,000 mg PO HS PRN 09/20/21 08/21/22 History Atorvastatin [Lipitor] 40 mg PO DAILY #30 tab 09/23/21 08/21/22 Rx carvediloL [Coreg] 6.25 mg PO BID-W/MEALS #60 tab 09/23/21 08/21/22 Rx Empagliflozin [Jardiance] 25 mg PO DAILY 08/21/22 08/21/22 History Sacubitril/Valsartan [Entresto 24 1 each PO DAILY 08/21/22 08/21/22 History mg-26 mg Tablet] Semaglutide [Ozempic] 0.5 mg SQ TU 08/21/22 08/21/22 History allopurinoL [Zyloprim] 100 mg PO DAILY 08/21/22 08/21/22 History Allergies Allergy/AdvReac Type Severity Reaction Status Date / Time No Known Allergies Allergy Verified 08/21/22 12:11 Physical Examination - Shoulder right Tenderness with palpation: anterior Pain: with abduction, with forward flexion ROM: forward flexion: 140 degrees ROM: internal rotation: lower lumbar ROM: external rotation: 50 degrees Strength: abduction: 4/5 Strength: external rotation: 4/5 Tests: internal impingement tests: positive (Positive Webber, positive Neer) Results The patient is a well-developed well-nourished female approximately 4 foot 10, 131 pounds. HEENT exam is nonfocal, neck is supple. She's tender about the right subacromial space. Moderate crepitus is noted. Speed test is positive. Her distal neurovascular appears intact in the right upper extremity. - Diagnostic results Shoulder MRI: image reviewed (Previous MRI of the right shoulder shows evidence of a rotator cuff tear involving the infraspinatus.) Assessment and Plan Assessment: Right rotator cuff tearsymptomatic Plan: I talked to the patient at length regarding her condition along with treatment options. At this point she remains quite symptomatic despite conservative m easures. After thorough discussion she has proceed with surgery. We'll plan to proceed with arthroscopic evaluation with probable right shoulder subacromial decompression, possible rotator cuff debridement versus repair, in addition to possible biceps tenotomy.
[2022-08-23] MEDS ORDERED: ONDANSETRON 4 MG/2 ML VIAL IVP ONE (06:10)
[2022-08-23] MEDS ORDERED: LIDOCAINE 1% (10MG/ML) FOR IV START INTRADERMA PRN (06:10)
[2022-08-23] MEDS ORDERED: DEXAMETHASONE SOD PHOSPHATE 4 MG/ML 1 ML VIAL IV ONE (06:10)
[2022-08-23] MEDS ORDERED: MIDAZOLAM 2 MG/2 ML VIAL IV PRN (06:10)
[2022-08-23] MEDS ORDERED: HYDROmorphone 0.5 MG/0.5 ML SYRINGE IVP PRN (06:10)
[2022-08-23] MEDS ORDERED: LACTATED RINGERS 1,000 ML IV SCH (06:10)
[2022-08-23] MEDS ORDERED: LACTATED RINGERS 1,000 ML IV ONE (06:24)
[2022-08-23 06:44] LABS: Glucose,Whole Blood 118 mg/dL (70-110)
[2022-08-23] MEDS ORDERED: MIDAZOLAM 2 MG/2 ML VIAL IVP ONE (07:22)
--- NOTE | 2022-08-23 07:27 | P.ANPRN ---
Procedure Note - Anesthesia - Nerve Block Performed Right Interscalene Single Time Out Performed: Yes (0721) Date of Procedure: 08/23/22 Procedure Start Time: Procedure Stop Time: Location of Patient: PreOp Indication: Acute Post-Operative Pain, Dx/Pain Location (Right shoulder pain), Requested by Surgeon Sedation Type: Sedate with meaningful contact maintained Preparation: Sterile Prep Position: Supine Catheter: None Needle Gauge: 21 Ultrasound used to visualize needle placement: Yes Ultrasound used to observe medication spread: Yes Injectate: 0.5% Ropivacaine (see comment for volume) (with 4 mg decadron) Blood Aspirated: No Pain Paresthesia on Injection Noted: No Resistance on Injection: Normal Image Stored and Saved: Yes Events: Uneventful and Well Tolerated
[2022-08-23] MEDS ORDERED: ROCURONIUM 10 MG/ML (5 ML VIAL) IV ONE (07:41)
[2022-08-23] MEDS ORDERED: DEXAMETHASONE SOD PHOSPHATE 4 MG/ML 1 ML VIAL ONE (07:41)
[2022-08-23] MEDS ORDERED: ROPIVACAINE 5 MG/ML 30 ML VIAL ONE (07:41)
[2022-08-23] MEDS ORDERED: LIDOCAINE 2% INJ 20 MG/ML (2 ML VIAL) ONE (07:41)
[2022-08-23] MEDS ORDERED: PROPOFOL 10 MG/ML 20 ML VIAL IV ONE (07:41)
[2022-08-23] MEDS ORDERED: SUCCINYLCHOLINE CHLORIDE 200 MG/10 ML VIAL IV ONE (07:41)
[2022-08-23] MEDS ORDERED: fentaNYL (PF) 50 MCG/ML 2 ML AMP ONE (07:41)
[2022-08-23] MEDS ORDERED: ePHEDrine 50 MG/ML 1 ML VIAL ONE (07:41)
[2022-08-23] MEDS ORDERED: GLYCOPYRROLATE 0.2 MG/ML 2 ML VIAL ONE (07:41)
[2022-08-23] MEDS ORDERED: NEOSTIGMINE 1 MG/ML 10 ML VIAL ONE (07:41)
[2022-08-23] MEDS ORDERED: EPINEPHrine (PF) 1 ML in SODIUM CHLORIDE 0.9% IRRIGATIO 3,000 ML IRRIGATION ONE ×8 (08:00)
--- NOTE | 2022-08-23 09:37 | P.OP ---
Date of Procedure: 08/23/22 Preoperative Diagnosis: Right rotator cuff tear Postoperative Diagnosis: Same in addition to high-grade partial-thickness tear proximal biceps Procedure(s) Performed: Right shoulder arthroscopic subacromial decompression/biceps tenotomy/rotator cuff repair Implants: Arthrex 4.75 mm swivel lock anchor times one, 5.5 mm swivel lock anchor 1 Anesthesia: luz NEWBY Surgeon: Kosta Mariano Underwater Roboticist #1: Tony Crane Estimated Blood Loss (ml): 10 Pathology: none sent Condition: stable Disposition: PACU Indications for Procedure: The patient is a 56-year-old female who presents after injuring herself at work previously with persistent right shoulder pain and weakness despite extensive conservative measures. A discussion of the risks and benefits of operative intervention versus continued conservative measures was made with the patient. She opted to proceed with surgery. Operative risks to include infection, neurovascular injury, development of blood clots, postoperative stiffness, possible rerupture and need for subsequent procedures was discussed. Informed consent was obtained. Operative Findings: As below Description of Procedure: The patient was brought to the operating room, and after induction of general anesthesia was placed in a beachchair position. A preoperative interscalene block was placed for postoperative analgesia. I examined the right shoulder. There was no gross block to passive motion or gross glenohumeral instability. The right upper extremity was prepped and draped in normal fashion. The bony outlines the acromion, distal clavicle, and coracoid process were outlined with a skin marker. The glenohumeral joint was inflated with 50 mL of saline utilizing a spinal needle from posterior approach. A posterior portal was made through a 5 mm skin incision 1 cm medial and inferior to the posterior lateral border time. A blunt trocar was used to easily into the joint. Diagnostic arthroscopy was performed. An anterior portal was made just lateral to the coracoid process entering the joint above the subscapularis tendon. The subscapularis tendon appeared to be intact. Anterior labrum was intact. The inferior recess was inspected. The posterior labrum was intact. There was a high-grade partial-thickness tear of the long head of the biceps involving interarticular portion. I elected to proceed with release at this point. This was released from the superior labrum with electrocautery and was allowed to retract to the bicipital groove. On inspection the rotator cuff, a full- thickness tear involving the anterior aspect the supraspinatus was noted. A lateral portal was made 2 centimeters inferior to the anterior lateral border of the acromion. The rotator cuff was then mobilized easily. This was then easily brought back to the greater tuberosity. The soft tissue on the undersurface of the acromion was debrided with a motorized shaver and electrocautery clearly defining the anterior medial and lateral borders as well as the distal clavicle. An anterior inferior acromioplasty was performed with a motorized luan starting anterolateral, then extending this posteriorly, then extending this medially. I converted to a flat acromion and this was verified in the posterior and lateral viewing portals. An additional posterior lateral portal was made 1 cm off the lateral edge of the acromion through a 5 mm skin incision. The greater tuberosity was lightly decorticating with a shaver down to a bleeding bony surface. An accessory superior lateral portal was made just off the lateral edge of the acromion for anchor placement. A 4.75 mm swivel lock anchor preloaded with fiber tape was then placed just off the articular surface with the appropriate starting awl. Good purchase was obtained. The 2 fiber tapes along with the accessory suture were passed through the rotator cuff with a scorpion suture passer. A lateral 5.5 mm swivel lock anchor was placed and the sutures were appropriately tensioned. Good purchase was obtained. Final arthroscopic view showed adequate compression at the footprint. The arthroscope was then removed. The portals were closed with simple 3-0 nylon sutures. A sterile dressing was applied in addition to a sling. The patient was then awoken from general anesthesia and transferred to recovery room in good condition. Blood loss was estimated at 10 mL. No complications were incurred. Sponge and needle counts were correct in the case. Tony MCDERMOTT assisted and the major components of the case to include arm positioning, anchor placement, and rotator cuff repair.
[2022-08-23 09:45] VITALS: TEMP 97
[2022-08-23 10:14] VITALS: RESP 20
[2022-08-23 10:55] VITALS: BP 153/79; PULSE 62
== END 2022-08-23 11:14 | disposition home or self-care (01) ==
LOC: OR 05:56
PROVIDERS: ATTEND Orthopaedic Surgery
DX: M75.111 Incomplete rotator cuff tear or rupture of right shoulder, not specified as traumatic (principal); M75.41 Impingement syndrome of right shoulder; G89.18 Other acute postprocedural pain; I11.0 Hypertensive heart disease with heart failure; I50.9 Heart failure, unspecified; E11.9 Type 2 diabetes mellitus without complications; M10.9 Gout, unspecified; E78.5 Hyperlipidemia, unspecified; M19.90 Unspecified osteoarthritis, unspecified site; F17.200 Nicotine dependence, unspecified, uncomplicated; Z90.710 Acquired absence of both cervix and uterus; Z98.891 History of uterine scar from previous surgery; Z82.3 Family history of stroke; Z79.84 Long term (current) use of oral hypoglycemic drugs; Z79.899 Other long term (current) drug therapy
CPT/HCPCS: 64415; 76942; 29826; 29827; C1713 ×2; C1894; J2250; J0330; J1100; J2710; J0690; J2405; J0171; J3010; J2795; J2704; J2001